=== PATIENT | female | born 1975 | race Asian ===

== ENCOUNTER → 2016-11-05 | Outpatient (CLI) | payer MEDICAID | LOC: FIMAGING 10:06 | PROVIDERS: ATTEND Family Medicine | DX: M25.761 Osteophyte, right knee (principal) ==

== ENCOUNTER → 2018-01-12 | Outpatient (CLI) | payer MEDICAID | LOC: FIMAGING 10:45 | PROVIDERS: ATTEND Physician Assistant | DX: M25.522 Pain in left elbow (principal) ==